=== PATIENT | female | born 1980 | race African-American/Black ===

== ENCOUNTER 2020-01-22 19:52 | Emergency (ER) | payer OTHER ==
[~2020-01-22] VITALS: Ht 170.2 cm; Wt 99.8 kg
== END 2020-01-22 20:44 | disposition home or self-care (01) ==
LOC: FSED 19:52
DX: R50.9 Fever, unspecified (principal); J03.00 Acute streptococcal tonsillitis, unspecified; R51 Headache
CPT/HCPCS: 83518; 87400; 99283